=== PATIENT | female | born 1950 | race Caucasian/White ===

== ENCOUNTER 2018-10-10 08:13 | Emergency (ER) | payer OTHER ==
[~2018-10-10] VITALS: Ht 172.7 cm; Wt 113.4 kg
[~2018-10-10 08:13] MED LIST: ASPI81EC PO; HYDACE5 PO; HYDCHL25 PO; LORA.5 PO; METH40; METH40 PO; METO100ER; METO100ER PO; METO50ER; OXYACE5T PO; PROM25 PO; SILSUL1TC TOP; SULTRIDS PO; SUMA20NI; SUMA25 PO
[2018-10-10] MEDS ORDERED: NEBI5 PO (08:46)
[2018-10-10] MEDS ORDERED: ASPI325 PO (08:48)
[2018-10-10 09:00] LABS: BASOPHILS ABSOLUTE AUTO 0.04 K/mm3 (0.00-0.23); BASOPHILS PERCENT AUTO 0 % (0-2); EOSINOPHILS ABSOLUTE AUTO 0.11 K/mm3 (0.00-0.68); EOSINOPHILS PERCENT AUTO 1 % (0-6); Hematocrit 35.7 % (33.0-51.0); Hemoglobin 11.5 g/dL (11.5-16.0); IMMATURE GRAN ABSOLUTE AUTO 0.04 K/mm3 (0.00-0.10); IMMATURE GRAN PERCENT AUTO 0 % (0-1); LYMPHOCYTES ABSOLUTE AUTO 1.27 K/mm3 (0.84-5.20); LYMPHOCYTES PERCENT AUTO 13 % (21-46); MONOCYTES ABSOLUTE AUTO 0.93 K/mm3 (0.16-1.47); MONOCYTES PERCENT AUTO 9 % (4-13); Mean Corpuscular HGB 30.7 pg (26.0-34.0); Mean Corpuscular HGB Conc 32.2 g/dL (31.5-36.5); Mean Corpuscular Volume 95 fL (80-100); Mean Platelet Volume 9.7 fL (9.1-12.4); NEUTROPHILS PERCENT AUTO 76 % (41-73); Platelet Count 176 K/mm3 (150-400); RDW Coefficient Variation 12.9 % (11.7-14.2); RDW Standard Deviation 45.6 fL (35.1-46.3); Red Blood Cell Count 3.75 M/mm3 (3.80-5.20); White Blood Cell Count 10.09 K/mm3 (4.00-11.30)
[2018-10-10 09:21] LABS: Alanine Aminotransfer (ALT/SGP 41 U/L (12-78); Albumin, Blood 3.4 g/dL (3.4-5.0); Albumin/Globulin Ratio 0.9 (0.8-1.8); Alk Phos 67 U/L (50-136); Anion Gap 5 mmol/L (6-16); Aspartate Aminotrans (AST/SGOT 43 U/L (12-37); Blood Urea Nitrogen 10 mg/dL (8-24); Bun/Creatinine Ratio 12.8 (12.0-20.0); CO2, Blood 31 mmol/L (21-32); Calcium, Blood 8.4 mg/dL (8.5-10.1); Chloride, Blood 103 mmol/L (98-108); Creatinine, Blood 0.78 mg/dL (0.40-1.00); Globulin, Blood 3.8 g/dL (2.2-4.0); Glomerular Filtration Rate >60 (60-); Glucose, Blood 123 mg/dL (70-99); Potassium, Blood 3.6 mmol/L (3.5-5.5); Sodium, Blood 139 mmol/L (136-145); Total Protein, Blood 7.2 g/dL (6.4-8.2); Troponin I <0.015 ng/mL (0.000-0.040)
[2018-10-10] MEDS ORDERED: K-Dur10 MEQ PO (10:45)
[2018-10-10] MEDS ORDERED: Lasix20 MG PO (10:45)
[2018-10-10] MEDS ORDERED: METH40 PO (20:09)
[2018-10-10] MEDS ORDERED: FURO20 PO (21:50)
[2018-10-10] MEDS ORDERED: POTCHL10ER PO (21:50)
== END 2018-10-10 11:22 | disposition home or self-care (01) ==
LOC: ER 08:13
PROVIDERS: Emergency Medicine
DX: I11.0 Hypertensive heart disease with heart failure (principal); I50.9 Heart failure, unspecified; Z88.6 Allergy status to analgesic agent; Z88.8 Allergy status to other drugs, medicaments and biological substances; Z79.899 Other long term (current) drug therapy; Z79.82 Long term (current) use of aspirin; G43.909 Migraine, unspecified, not intractable, without status migrainosus; F17.210 Nicotine dependence, cigarettes, uncomplicated
CPT/HCPCS: 36415; 71046; 80053; 83690; 83880; 84484; 85025; 93005; 93010; 96374; 99285-25; J3010

== ENCOUNTER 2018-10-10 16:49 | Inpatient (IN) | payer MEDICARE, OTHER ==
[~2018-10-10] VITALS: Ht 147.3 cm; Wt 79.4 kg
[~2018-10-10 16:49] MED LIST changes: +ASPI325 PO; +K-Dur10 MEQ PO; +Lasix20 MG PO; +NEBI5 PO
[2018-10-10] MEDS ORDERED: METH40 PO (20:09)
[2018-10-10 21:33] LABS: International Normalized Ratio 1.02; Prothrombin Time Results 10.8 Sec (9.7-11.5)
[2018-10-10 21:48] LABS: Magnesium, Blood 2.4 mg/dL (1.6-2.4)
[2018-10-10 21:50] LABS: Thyroid Stimulating Hormone 0.829 uIU/mL (0.360-4.800)
[2018-10-10] MEDS ORDERED: FURO20 PO (21:50)
[2018-10-10] MEDS ORDERED: POTCHL10ER PO (21:50)
--- NOTE | 2018-10-10 22:00 | NUR ---
ASSUMED CARE PT ARRIVES TO [facility] FROM ER AT APPROXIMATELY 2130 VIA GURNEY. PT IS AOX4. VSS. AMBULATES WITH STANDBY ASSIST TO BATHROOM AND HOSPITAL BED. PT REPORTS SLIGHT DYSPNEA ON EXERTION. REPORTS CHEST PAIN TO CENTER OF CHEST THAT IS ACHY AT REST, BUT SHARP WITH DEEP BREATHING- REPORTS THAT PAIN WITH MEDICATIONS IN ER. LUNG SOUNDS ARE CLEAR IN UPPER LOBES, DIMINISHED IN BASES WITH CRACKLES TO LLL. HEART RHYTHM IS NORMAL SINUS WITH A RATE IN THE 70'S. WILL CONTINUE WITH ASSESSMENT AND ADMISSION. PT ORIENTED TO ROOM AND CALL LIGHT SYSTEM, INTRUCTED TO CALL FOR ASSISTANCE NEEDED. BED IN LOW POSITION, CALL LIGHT IN REACH.
--- NOTE | 2018-10-11 06:06 | NUR ---
SHIFT SUMMARY PT HAS REMAINED AOX4 THROUGHOUT SHIFT. VSS. PLEASANT AND COOPERATIVE WITH CARE. PT CONTINUES TO AMBULATE INDEPENDENTLY TO THE RESTROOM WITHOUT DIFFICULTY. MEDICATED MULTIPLE TIMES FOR PAIN TO CENTER OF CHEST THAT DECREASES WITH ORDERED MEDICATIONS- PT ALSO REPORTS THAT THE PAIN AREA HAS IMPROVED THROUGHOUT THE NIGHT. O2 SATS HAVE REMAINED >90% ON RA. PT HAS WORN CPAP WHILE SLEEPING AND TOLERATED WELL. NO OTHER CHANGES FROM INITIAL ASSESSMENT. WILL CONTINUE TO MONITOR AND REPORT TO ONCOMING SHIFT RN. BED IN LOW POSITION,CALL LIGHT IN REACH.
--- NOTE | 2018-10-11 07:00 | NUR ---
REC'D REPORT FROM HEATHER HECTOR. PT APPEARS TO BE SLEEPING, NO S/S OF DISTRESS.
--- NOTE | 2018-10-11 12:48 | NUR ---
REPORT RECEIVED FROM KRUNAL BENSON. NO ACUTE CHANGES NOTED. NO CURRENT COMPLAINTS OF PAIN OR DISCOMFORT NOTED. NO SHORTNESS OF BREATH NOTED. WILL CONTINUE TO MONITOR FOR CHANGES.
--- NOTE | 2018-10-11 13:51 | NUR ---
KRUNAL MARKS ASSUMING CARE, REPORT GIVEN.
--- NOTE | 2018-10-11 18:51 | NUR ---
NO ACUTE CHANGES NOTED. NO CURRENT COMPLAINTS OF PAIN OR DISCOMFORT NOTED AT THIS TIME. PATIENT REPORTS SOME DISCOMFORT WHEN SHE TAKE A DEEP BREATH. PATIENT IS ALERT, ORIENTED AND INDEPENDENT IN THE ROOM. WILL CONTINUE TO MONITOR FOR CHANGES.
--- NOTE | 2018-10-11 21:56 | NUR ---
ASSUMED CARE PATIENT ALERT AND ORIENTED X4. RESPIRATIONS E/U ON ROOM AIR AND L/S CLEAR. PATIENT DENIES ANY PAIN AT THIS TIME. VSS. NO ACUTE DISTRESS NOTED. CALL LIGHT W/I REACH. REPORTED OFF TO HEATHER HECTOR.
[2018-10-12 05:16] LABS: Anion Gap 6 mmol/L (6-16); Blood Urea Nitrogen 19 mg/dL (8-24); Bun/Creatinine Ratio 20.6 (12.0-20.0); CO2, Blood 29 mmol/L (21-32); Calcium, Blood 8.7 mg/dL (8.5-10.1); Chloride, Blood 106 mmol/L (98-108); Creatinine, Blood 0.92 mg/dL (0.40-1.00); Glomerular Filtration Rate >60 (60-); Glucose, Blood 95 mg/dL (70-99); Potassium, Blood 3.8 mmol/L (3.5-5.5); Sodium, Blood 141 mmol/L (136-145)
--- NOTE | 2018-10-12 05:27 | NUR ---
Shift summary PT has remained AOX4 throughout shift since care assumed at approx 2130. VSS. Pleasant and cooperative with care. PT continues to ambulate independently to the restroom without difficulty. Denies dyspnea on exertion and has denied chest pain throughout the night. Medicated multiple times for pain throughout the shift in back and legs that is chronic- pt on pain medication regimen at home, reports relief with ordered medications. O2 sats have remained >90% on RA or CPAP without O2 bleed-in. Lung sounds have remained clear throughout remainder of the night. No other changes noted from assessment. Will continue to monitor and report to oncoming shift RN. Bed in low position, call light in reach.
--- NOTE | 2018-10-12 13:13 | NUR ---
Assumed care of pt at approx 0715. Pt in no apparent sign of distress. VSS. Pt resting comfortably in bed. Pt states she worked swing shift and has difficulty sleeping at night. Pt would like to nap today, this RN placed sign on door to keep door closed and to contact this RN before entering to allow pt to rest. Dr Villareal in this AM, labs and cardiology consulted per MD orders. No further orders obtained at this time. Awaiting Cardiology to consult pt. If pt is cleared by cardiology, possible d/c this afternoon per dr. villareal. pt a&o, appropriately uses call light, up ad zelda in room, able to reposition self and make needs known. Call light within reach, bed in lowest position and locked. nurse roundings completed per protocol and pt w/o further questions or concerns at this time. will continue to monitor and update as appropriate. please see shift assessment for detailed assessment.
[2018-10-12 14:52] LABS: Rheumatoid Factor, Serum Negative (Negative)
--- NOTE | 2018-10-12 18:50 | NUR ---
Shift summary no acute changes this shift. vss. pt in no apparent sign of distress. Dr. Pacheco in this afternoon and recommends pt stay one more night to have a stress test completed tomorrow. pt agrees and states understanding for recommendation. pt a&ox4, calls appropriately, and is independant in room. Home methadone 40mg daily reordered per dr. aguilar, given this shift per pt request. pt with no further questions or concerns. will continue to monitor until report is given to donell rn.
--- NOTE | 2018-10-12 21:33 | NUR ---
ASSUMED CARE OF PATIENT AT APPROXIMATELY 1900 FROM AMILCAR Raza RN. PATIENT ALERT AND ORIENTED X4; INDEPENDENT IN ROOM; PATIENT HAS FINISHED DINNER; LAYING IN BED DURING BEDSIDE REPORT. PATIENT COMPLAINED OF PAIN DURING ASSESSMENT; REPORTS CHRONIC BACK PAIN; REPORTS TYLENOL "DOESNT DO ANYTHING"; MEDICATED PER EMAR. PATIENT DENIES NUMBNESS, TINGLING, DIZZINESS AND NAUSEA. PATIENT TO BE NPO 4 HOURS PRIOR TO PROCEDURE (STRESS TEST IN AM) PATIENT UNDERSTANDS AND VERBALIZES. PATIENT DID NOT HAVE IV ACCESS AT SHIFT CHANGE; MACHINE STEAK TENDERIZER TO PLACE IV; REPORTED IV WAS TENDER THIS AM. PATIENT CURRENTLY RESTING IN BED; REPORTS SHE WILL PUT ON CPAP BEFORE SHE GOESNT TO BED; CALL LIGHT IN REACH; BED IN LOWEST POSISTION; WILL CONTINUE TO MONITOR AND ASSESS UNTIL END OF SHIFT.
[2018-10-13 04:36] LABS: BASOPHILS ABSOLUTE AUTO 0.04 K/mm3 (0.00-0.23); BASOPHILS PERCENT AUTO 1 % (0-2); EOSINOPHILS ABSOLUTE AUTO 0.41 K/mm3 (0.00-0.68); EOSINOPHILS PERCENT AUTO 6 % (0-6); Hematocrit 38.3 % (33.0-51.0); Hemoglobin 12.5 g/dL (11.5-16.0); IMMATURE GRAN ABSOLUTE AUTO 0.04 K/mm3 (0.00-0.10); IMMATURE GRAN PERCENT AUTO 1 % (0-1); LYMPHOCYTES ABSOLUTE AUTO 2.79 K/mm3 (0.84-5.20); LYMPHOCYTES PERCENT AUTO 37 % (21-46); MONOCYTES ABSOLUTE AUTO 0.51 K/mm3 (0.16-1.47); MONOCYTES PERCENT AUTO 7 % (4-13); Mean Corpuscular HGB 30.6 pg (26.0-34.0); Mean Corpuscular HGB Conc 32.6 g/dL (31.5-36.5); Mean Corpuscular Volume 94 fL (80-100); Mean Platelet Volume 9.6 fL (9.1-12.4); NEUTROPHILS ABSOLUTE AUTO 3.68 K/mm3 (1.96-9.15); NEUTROPHILS PERCENT AUTO 49 % (41-73); Platelet Count 220 K/mm3 (150-400); RDW Standard Deviation 44.4 fL (35.1-46.3); Red Blood Cell Count 4.08 M/mm3 (3.80-5.20); White Blood Cell Count 7.47 K/mm3 (4.00-11.30)
[2018-10-13 05:02] LABS: Anion Gap 8 mmol/L (6-16); Blood Urea Nitrogen 23 mg/dL (8-24); Bun/Creatinine Ratio 25.6 (12.0-20.0); CO2, Blood 27 mmol/L (21-32); Chloride, Blood 105 mmol/L (98-108); Glomerular Filtration Rate >60 (60-); Glucose, Blood 105 mg/dL (70-99); Potassium, Blood 3.8 mmol/L (3.5-5.5); Sodium, Blood 140 mmol/L (136-145)
--- NOTE | 2018-10-13 05:34 | NUR ---
NO ACUTE CHANGES TO REPORT. PATIENT SLEPT ABOUT FIVE HOURS LAST NIGHT. VSS. WILL CONTINUE TO MONITOR AND ASSESS UNTIL END OF SHIFT. PATIENT CURRENTLY NPO.
--- NOTE | 2018-10-13 13:23 | NUR ---
assumed care at approx 0700. pt with no complaints at that time. pt vss, a&ox4 and condition unchanged from previous shift. Pt updated on plan of care regarding stress test. Pt remains NPO until stress test completed. Pt denies chest pain/chest pressure. pt c/o chronic pain to back. Pt continues to reinforce desire to quit smoking post hosptial stay. Nuclear medicine injection completed at 1220. Stress test planned for 1430. Pt to remain NPO. Will continue to monitor and update as appropriate. See shift assessment for detailed assessment. Pt resting comfortably in bed at this time. Bed is locked, in lowest position, call light in reach.
--- NOTE | 2018-10-13 17:51 | NUR ---
SHIFT SUMMARY No acute changes this shift. vss. no apparent sign of distress. pt a&ox4, calls appropriately, with friend at bedside. Pt denies chest pain, chest pressure, SOB, or changes in mentation. Pt c/o chronic pain to the back. Pt medicated with 5mg roxycodone with stated relief. Stress test completed this afternoon. awaiting results at this time. Discharge pending results of stress test and clearance from cardiology. Pt no longer NPO, now on cardiac diet. Pt up ad zelda and ambulating halls 3 times this shift. Pt with no further questions or concerns at this time. Will continue to monitor and provide care report given to donell RN.
[2018-10-13 18:06] LABS: ANTI-DSDNA ANTIBODIES 1 IU/mL (0-9)
--- NOTE | 2018-10-14 02:06 | NUR ---
ASSUMED CARE OF PATIENT AT APPROXIMATELY 1910 FROM AMILCAR Raza RN. PATIENT ALERT AND ORIENTED X4; INDEPENDENT IN ROOM; PATIENT COMPLAINED OF PAIN DURING ASSESSMENT; REPORTS CHRONIC BACK PAIN; REPORTS TOLERABLE AT THIS TIME; WILL NOTIFY STAFF WHEN PAIN NOT TOLERABLE. PATIENT DENIES NUMBNESS, TINGLING, DIZZINESS AND NAUSEA. PIV S/L. NSR ON TELE; OXYGEN SAUTRATION ABOVE 90% ON ROOM AIR OR CPAP. PATIENT HAD STRESS TODAY; MOST LIKELY D/C IN AM. PATIENT CURRENTLY RESTING IN BED; CALL LIGHT IN REACH; BED IN LOWEST POSISTION; WILL CONTINUE TO MONITOR AND ASSESS UNTIL END OF SHIFT.
--- NOTE | 2018-10-14 10:01 | NUR ---
Assumed care of pt at approx 0710 from KRUNAL Zelaya. Pt in bed in no apparent sign of distress. pt VSS. pt remains a&ox4. Stress test results back and read by Dr. Santiago. Dr. Santiago gives verbal clearance of normal results to this RN. Istrate notified and awaiting discharge orders at this time. will continue to monitor and update as appropriate. See shift assessment for detailed assessment.
[2018-10-14 10:12] LABS: Antinuclear Antibody Screen Negative (Negative)
[2018-10-14] MEDS ORDERED: ACET325 PO (13:12)
[2018-10-14] MEDS ORDERED: FURO40 PO (13:12)
[2018-10-14] MEDS ORDERED: ASPI325EC PO (13:13)
[2018-10-14] MEDS ORDERED: CARV3.125 PO (13:14)
[2018-10-14] MEDS ORDERED: COLCRYS0.6 MG PO (13:14)
[2018-10-14] MEDS ORDERED: ONDA8 PO (13:15)
[2018-10-14] MEDS ORDERED: NICO21TP TOP (13:15)
[2018-10-14] MEDS ORDERED: PANT40 PO (13:16)
--- NOTE | 2018-10-14 14:47 | NUR ---
No acute changes this shift. Dishcharge orders from Dr. Villareal recieved and completed. Pt VSS this shift. no complaint of chest pain or chest pressure. No complaint of SOB. Pt remains A&Ox4 and independantly walks throughout unit. All questions answered to pt satisfaction. Education given regarding new dx of CHF. IV removed without s/sx of bleeding or infection. pt steady on feet and able to ambulate at the same strength as baseline. Pt left unit at approx 1415.
[2018-10-14 15:06] LABS: ANA DIRECT Negative (Negative); ANTIMYELOPEROXIDASE (MPO) ABS <9.0 U/mL (0.0-9.0); ANTIPROTEINASE 3 (PR-3) ABS <3.5 U/mL (0.0-3.5); ATYPICAL PANCA <1:20 titer (Neg:<1:20); CYTOPLASMIC (C-ANCA) <1:20 titer (Neg:<1:20); PERINUCLEAR (P-ANCA) <1:20 titer (Neg:<1:20)
[2018-10-14 18:06] LABS: CCP ANTIBODIES IGG/IGA 6 units (0-19)
[2018-10-17 22:07] LABS: CK-BB 0 % (0); CK-MB 0 % (0-3); CK-MM 100 % (97-100); MACRO TYPE 1 0 % (Not Observed); MACRO TYPE 2 0 % (Not Observed)
[2018-10-21 16:06] LABS: ANTI-PS/PT ABS IGG <10 Units (.); ANTI-PS/PT ABS IGM <10 Units (.); APTT 27.2 sec (.); DRVVT SCREEN SECONDS 38.5 sec (.); PROTHROMBIN TIME 10.6 sec (.); THROMBIN TIME 15.3 sec (.)
== END 2018-10-14 14:59 | disposition home or self-care (01) | DRG 292 ==
LOC: ER 16:49 → PCU 20:44
PROVIDERS: Family Medicine; Internal Medicine; Nurse Practitioner Acute Care; ADMIT Internal Medicine
DX: I11.0 Hypertensive heart disease with heart failure (principal); I31.9 Disease of pericardium, unspecified; E66.9 Obesity, unspecified; I25.10 Atherosclerotic heart disease of native coronary artery without angina pectoris; F17.210 Nicotine dependence, cigarettes, uncomplicated; G47.33 Obstructive sleep apnea (adult) (pediatric); G89.4 Chronic pain syndrome; Z79.891 Long term (current) use of opiate analgesic; I50.30 Unspecified diastolic (congestive) heart failure; M43.00 Spondylolysis, site unspecified
CPT/HCPCS: 36415; 78452; 80048; 82550; 82552; 83520; 83735; 84132; 84145; 84443; 84484; 85025; 85379; 85610; 85651; 86038; 86140; 86200; 86225; 86256; 86430; 93005; 93010; 93017; 93306; 94660; 94762; 96374; 98960; 99285-25; A9500; J0706; J1650; J1940; J2785; J3010

== ENCOUNTER → 2020-09-14 | Outpatient (CLI) | payer OTHER ==
[~2020-09-14] MED LIST changes: +ACET325 PO; +ASPI325EC PO; +CARV3.125 PO; +COLCRYS0.6 MG PO; +FURO20 PO; +FURO40 PO; +NICO21TP TOP; +ONDA8 PO; +PANT40 PO; +POTCHL10ER PO
== END | disposition home or self-care (01) ==
LOC: LAB SHORT 13:45 → LAB EV 13:45
DX: N39.0 Urinary tract infection, site not specified (principal)
CPT/HCPCS: 87086

== ENCOUNTER 2023-10-20 10:33 | Day surgery (SDC) | payer OTHER ==
[~2023-10-20] VITALS: Ht 147.3 cm; Wt 85.8 kg
[2023-10-20 11:56] VITALS: BP 113/65
== END 2023-10-20 12:18 | disposition home or self-care (01) ==
LOC: ORSCSDS 10:33
PROC: 08RJ3JZ Replacement of Right Lens with Synthetic Substitute, Percutaneous Approach (ICD-10-PCS; principal; 2023-10-20)
DX: H25.11 Age-related nuclear cataract, right eye (principal); H25.813 Combined forms of age-related cataract, bilateral; G51.0 Bell's palsy; G47.33 Obstructive sleep apnea (adult) (pediatric); I10 Essential (primary) hypertension; Z79.899 Other long term (current) drug therapy; Z79.82 Long term (current) use of aspirin; F17.210 Nicotine dependence, cigarettes, uncomplicated; K21.9 Gastro-esophageal reflux disease without esophagitis; E66.9 Obesity, unspecified; Z68.39 Body mass index [BMI] 39.0-39.9, adult

== ENCOUNTER 2024-12-28 08:26 | Day surgery (SDC) | payer OTHER ==
[~2024-12-28] VITALS: Ht 147.3 cm; Wt 84.8 kg
[~2024-12-28 08:26] MED LIST changes: +Balanced Salt Epinephrine Irrigation Solution 500 mL IR SCH; +CARV6.25 PO; +CYCL10 PO; +LISI20 PO; +METH10 PO; +Moxifloxacin HCL 0.5 MG/0.1 ML 0.4MLSYR LEFTEYE SCH; +Ondansetron 4 MG SoluTab MM PRN; +PHENYLEPHRINE\\TROPICAMIDE\\TETRACAINE OPHTHALMIC DILATING SOLN LEFTEYE PRN; +Povidone-Iodine 450 DROP/30 ML Solution LEFTEYE SCH; +Povidone-Iodine 450 DROP/30 ML Solution ONE; +Tetracaine HCl/Pf 0.5% Opth Soln 4 ml ONE; +Triamcinolone Inj Susp 40 MG / ML 1ML Vial INJ SCH; +Triamcinolone Inj Susp 40 MG / ML 1ML Vial ONE
--- NOTE | 2024-12-28 09:09 | NUR ---
12/28/24 0909 Sofie Maria 0909: INITIAL ANXIETY 0/10 PER PATIENT REPORT
[2024-12-28] MEDS ORDERED: METHADONE HCL1010 PO (09:16)
[2024-12-28] MEDS ORDERED: NALOXONE HCL4 MG (09:16)
[2024-12-28] MEDS ORDERED: Tetracaine HCl 0.5% Opth Soln 15 ml ONE (09:20)
[2024-12-28] MEDS ORDERED: Tetracaine HCl 0.5% Opth Soln 15 ml LEFTEYE ONE (09:59)
--- NOTE | 2024-12-28 10:05 | NUR ---
12/28/24 1005 Abbe Garcia N 114/54 100% 10L BLOW BY O2 78 18
[2024-12-28 10:32] VITALS: BP 114/60
--- NOTE | 2024-12-28 11:01 | NUR ---
12/28/24 1101 Marie Enamorado UPON APPLICATION OF PULSE OX, HR NOTED TO BE IN 150S, 160S. RADIAL PULSE REGULAR AND COUNTED TO BE IN 80S. 3LEAD EKG APPLIED, AT THIS TIME BOTH EKG AND PULSE OX COUNTED HR IN 80S. NO OBVIOUS EXPLANATION FOR DOUBLE COUNT AND EKG SHOWED NSR. PT MADE AWARE, IS FOLLOWED BY CARDIOLOGY FOR HEART MURMUR W PENDING ECHO. BP WNL, SATTING 98% RA.
== END 2024-12-28 10:58 | disposition home or self-care (01) ==
LOC: ORSCSDS 08:26
PROVIDERS: Ophthalmology
PROC: 08RK3JZ Replacement of Left Lens with Synthetic Substitute, Percutaneous Approach (ICD-10-PCS; principal; 2024-12-28 10:00)
DX: H25.812 Combined forms of age-related cataract, left eye (principal); Z96.1 Presence of intraocular lens; H52.202 Unspecified astigmatism, left eye; E78.5 Hyperlipidemia, unspecified; G51.0 Bell's palsy; I10 Essential (primary) hypertension; G47.30 Sleep apnea, unspecified; Z87.891 Personal history of nicotine dependence; Z79.899 Other long term (current) drug therapy
CPT/HCPCS: A9270; J3301; V2632